=== PATIENT | male | born 1930 | race Caucasian/White ===

== ENCOUNTER 2017-08-14 10:10 | Day surgery (SDC) | payer OTHER, MEDICARE ==
[2017-08-13 14:18] VITALS: BMI 29.4
[2017-08-14 11:25] VITALS: TEMP 98.2
[2017-08-14 11:58] VITALS: BP 125/71; PULSE 60
--- NOTE | 2017-08-15 15:45 | PATH ---
Surgical Pathology Report Patient Name: MARY LAUREN [facility]. Rec. #: [id number] /Age/Gender: 1930 (Age: 87) / M Account: [id number] Location: [facility]-ENDOSCOPY Taken: 08/14/2017 Received: 08/14/2017 Reported: 08/15/2017 Physicians: Ricky Durham M.D. Specimen(s) Received BX ANTRUM Clinical History Preoperative diagnosis: Heart burn Postoperative diagnosis: Duodenal ulcer Final Diagnosis ANTRUM, BIOPSY: SEVERE CHRONIC ACTIVE GASTRITIS. IMMUNOSTAINS SHOW NUMEROUS H PYLORI ORGANISMS. Electronically Signed Eli Palacios M.D. Gross Description Received in formalin, labeled "biopsy antrum" are 2 goodwin, irregular portions of soft tissue measuring 0.4 and 0.5 cm. in greatest dimension. The specimens are submitted in toto in one cassette. /08/14/201708/14/2017
== END 2017-08-14 12:09 | disposition home or self-care (01) ==
LOC: JASU-ENDO 10:10
PROVIDERS: ATTEND Internal Medicine Gastroenterology
PROC: 0DJ08ZZ Inspection of Upper Intestinal Tract, Via Natural or Artificial Opening Endoscopic (ICD-10-PCS; principal; 2017-08-14 11:45)
DX: K26.9 Duodenal ulcer, unspecified as acute or chronic, without hemorrhage or perforation (principal); K44.9 Diaphragmatic hernia without obstruction or gangrene
CPT/HCPCS: 88305-TC; 88342-TC

== ENCOUNTER 2017-09-25 08:32 | Day surgery (SDC) | payer OTHER, MEDICARE ==
[2017-09-24 13:56] VITALS: BMI 29.4
[2017-09-25] MEDS ORDERED: PROPOFOL 20 ML ONE (08:52)
[2017-09-25] MEDS ORDERED: ETOMIDATE 20 MG/10 ML AMPUL IVPUSH ONE (08:52)
[2017-09-25] MEDS ORDERED: LIDOCAINE HCL/PF 2% SDV 5ML VIAL ONE (08:52)
[2017-09-25] MEDS ORDERED: GLYCOPYRROLATE 0.2 MG/1 ML VIAL ONE (09:06)
[2017-09-25 09:40] VITALS: TEMP 98.3
[2017-09-25 10:20] VITALS: BP 136/74; PULSE 55
--- NOTE | 2017-09-26 16:55 | PATH ---
Surgical Pathology Report Patient Name: MARY LAUREN [facility]. Rec. #: [id number] /Age/Gender: 1930 (Age: 87) / M Account: [id number] Location: [facility]-ENDOSCOPY Taken: 09/25/2017 Received: 09/25/2017 Reported: 09/26/2017 Physicians: Ricky Durham M.D. Specimen(s) Received A: BX STOMACH B: BX TRANSVERSE COLON C: BX RIGHT COLON Clinical History Preoperative diagnosis: Chronic heartburn, history of colon polyp Postoperative diagnosis: Hiatal hernia, colon polyps, lipoma Final Diagnosis A. STOMACH, BODY AND ANTRUM, BIOPSY: GASTRIC ANTRUM AND BODY MUCOSA WITH MILD CHRONIC GASTRITIS. IMMUNOHISTOCHEMICAL STAIN FOR H. PYLORI IS NEGATIVE. B. TRANSVERSE COLON, POLYPS, POLYPECTOMY: TUBULAR ADENOMA(S). C. COLON, RIGHT, POLYP, POLYPECTOMY: TUBULAR ADENOMA(S). Electronically Signed Yoana Hassan M.D. Gross Description A. Received in formalin, labeled "biopsy body and antrum" are 2 goodwin, irregular portions of soft tissue averaging 0.4 cm. in greatest dimension. The specimens are submitted in toto in one cassette. B. Received in formalin, labeled "polyps transverse colon" are 4 goodwin, irregular portions of soft tissue ranging from 0.1-0.4 cm. in greatest dimension. The specimens are submitted in toto in one cassette. C. Received in formalin, labeled "right colon polyp" are 2 goodwin, irregular portions of soft tissue averaging 0.4 cm. in greatest dimension. The specimens are submitted in toto in one cassette. 09/25/2017 saudi09/25/2017
== END 2017-09-25 10:26 | disposition home or self-care (01) ==
LOC: JASU-ENDO 08:32
PROVIDERS: ATTEND Internal Medicine Gastroenterology
PROC: 0DBL8ZX Excision of Transverse Colon, Via Natural or Artificial Opening Endoscopic, Diagnostic (ICD-10-PCS; 2017-09-25)
PROC: 0DBF8ZX Excision of Right Large Intestine, Via Natural or Artificial Opening Endoscopic, Diagnostic (ICD-10-PCS; principal; 2017-09-25 09:30)
DX: Z12.11 Encounter for screening for malignant neoplasm of colon (principal); Z86.010 Personal history of colon polyps; K63.5 Polyp of colon; D17.5 Benign lipomatous neoplasm of intra-abdominal organs
CPT/HCPCS: 88305-TC; 88342-TC